=== PATIENT | male | born 1950 | race Caucasian/White ===

== ENCOUNTER → 2019-01-20 | Outpatient (CLI) | payer MEDICARE ==
--- NOTE | 2019-01-20 16:20 | PCVCIMAG ---
EXAM: BILATERAL CAROTID DUPLEX INDICATION: Carotid Occlusive Disease. FINDINGS: Doppler Measurements (centimeters per second): RIGHT: Peak CCA-104, Peak ECA-72, Diastolic ICA-22, Peak ICA-76, ICA/CCA Ratio-0.7. LEFT: Peak CCA-110, Peak ECA-103, Diastolic ICA-22, Peak ICA-83, ICA/CCA Ratio-0.8. RIGHT CAROTID: The carotid bulb has minimal plaque. The proximal internal carotid artery shows no significant stenosis. The common carotid artery shows no significant stenosis. The external carotid artery shows no significant stenosis. LEFT CAROTID: The carotid bulb has minimal plaque. The proximal internal carotid artery shows no significant stenosis. The common carotid artery shows no significant stenosis. The external carotid artery shows no significant stenosis. Antegrade flow in both vertebral arteries. IMPRESSION: No significant stenosis of the right internal carotid artery with minimal plaque. No significant stenosis of the left internal carotid artery with minimal plaque. LOC:[id number]
--- NOTE | 2019-01-20 16:35 | PCVCIMAG ---
APPROVED REPORT Study performed: 01/20/2019 14:46:57 Exam: Stress Echocardiogram Indication: Chest pain on exertion Patient Location: Echo lab Stress Nurse: Caridad Espinosa RN Room #: 2 Status: routine Ht: 5 ft 10 in HR: 78 bpm BP: 156/84 mmHg Rhythm: NSR Medical History Previous Cardiac Procedures: none Pretest Chest Pain Characteristics: No chest pain Exercise History: Physically active Procedure The patient underwent an Exercise Stress Test using the Fer Protocol. Blood pressure, heart rate, and EKG were monitored. An Echocardiogram was performed by dialysis equipment technician in four stages in quad fashion. At peak stress, four selected images were obtained and placed side by side with resting images for comparison. Stress Test Details Stress Test: Exercise stress testing was performed using a Fer protocol. HR Resting HR: 78 bpmMax Heart Rate (APMHR): 153 bpm Max HR Achieved: 176 bpmTarget HR (85% APMHR): 130 bpm % of APMHR: 115 Recovery HR: 90 bpm HR response to stress: Normal HR response to stress BP Resting BP: 156/84 mmHg Max BP: 184/76 mmHg Recovery BP: 168/82 mmHg BP response to stress: Normal blood pressure response to stress. ECG Resting ECG: Sinus Rhythm, nonspecific ST-T abnormalities Stress ECG: Sinus Rhythm, nonspecific ST-T abnormalities ST Change: Non-ischemic Arrhythmia: Rare PVCs,occasional PACs Recovery ECG: Sinus Rhythm, nonspecific ST-T abnormalities Recovery ST Change: EKG changes occurred late into recovery Recovery Arrhythmia: Rare PVCs Clinical Reason for Termination: Maximal effort Stress Symptoms: fatigue Exercise duration: 12 min 00 sec Highest Stage Achieved: Stage 4: 4.2 mph at 16% grade. Exercise capacity: 13.7 METs Overall Exercise Capacity for Age: Good Scale: Active Angina Score: Non-Limiting No complications. Stress ECG Conclusion The patient exercised according to the FER protocol for 12:00 mins; achieving a work level of 13.7 METS. The resting heart rate of 78 bpm raphael to a maximum heart rate of 176 bpm. This value represent 115% of the maximal, age-predicted heart rate. The resting blood pressure of 156/84 mmHg, raphael to a maximum blood pressure of 184/76 mmHg. The exercise test was stopped due to fatigue. Pre-Stress Echo The resting Echocardiogram showed normal left ventricular contractility with an estimated Ejection Fraction of about 55-60%. Normal wall motion in all segments on baseline images. Post-Stress Echo The stress Echocardiogram showed left ventricular contractility with an estimated Ejection Fraction of about 60-65%. The stress Echocardiogram demonstrated wall motion abnormality in the distal anterior,apex and distal septal mccrary . Mild distal dilitation is seen Conclusion Clinical Response: Equivocal Exercise Capacity: Superior Stress ECG Response: Ischemic Stress Echo Images: Ischemic Abnormal stress echo. Patient had mild pain during stress. EKG changes began during stress and continued late into recovery. Distal septal,apical and distal anteriior wall hypokinesis are seen post exercise No prior study available for comparison. <Conclusion> Abnormal stress echo. Patient had mild pain during stress. EKG changes began during stress and continued late into recovery. Distal septal,apical and distal anteriior wall hypokinesis are seen post exercise
== END | disposition home or self-care (01) ==
LOC: PCVCCLINIC 14:10
PROVIDERS: ATTEND Internal Medicine Cardiovascular Disease
DX: I65.23 Occlusion and stenosis of bilateral carotid arteries (principal); R09.89 Other specified symptoms and signs involving the circulatory and respiratory systems; R07.9 Chest pain, unspecified; E78.5 Hyperlipidemia, unspecified; R94.39 Abnormal result of other cardiovascular function study; Z82.49 Family history of ischemic heart disease and other diseases of the circulatory system; Z79.82 Long term (current) use of aspirin
CPT/HCPCS: 36415; 80061; 93005; 93325; 93351; 93880; G0463